=== PATIENT | female | born 1955 | race Caucasian/White ===

== ENCOUNTER 2023-05-12 06:11 | Day surgery (SDC) | payer OTHER, BC ==
[2023-05-05 13:56] VITALS: BMI 30.3
[2023-05-12] MEDS ORDERED: LIDOCAINE HCL 2% (20ML MULTI-DOSE VIAL) ONE (07:16)
[2023-05-12] MEDS ORDERED: PROPOFOL 20 ML ONE (07:24)
[2023-05-12] MEDS ORDERED: MIDAZOLAM HCL 2 MG/2 ML SINGLE DOSE VIAL ONE ×2 (07:25→07:50)
[2023-05-12] MEDS ORDERED: PROMETHAZINE HCL 25 MG/1 ML VIAL IVPB PRN (08:10)
[2023-05-12] MEDS ORDERED: oxyCODONE HCL 5 MG TABLET PO PRN (08:10)
[2023-05-12] MEDS ORDERED: LACTATED RINGERS SOLUTION 1,000 ML IV SCH (08:15)
[2023-05-12 08:31] VITALS: TEMP 97.8
[2023-05-12 09:26] VITALS: RESP 16
[2023-05-12 09:46] VITALS: PULSE 60
[2023-05-12 09:55] VITALS: BP 116/65
== END 2023-05-12 09:56 | disposition home or self-care (01) ==
LOC: FASU 06:11
PROVIDERS: ATTEND Orthopaedic Surgery Hand Surgery
PROC: 0LN70ZZ Release Right Hand Tendon, Open Approach (ICD-10-PCS; principal; 2023-05-12 07:55)
DX: M65.331 Trigger finger, right middle finger (principal)
CPT/HCPCS: 82962; 94760